=== PATIENT | female | born 1985 | race Two or more races ===

== ENCOUNTER 2024-05-19 17:22 | Emergency (ER) | payer MEDICAID, SELFPAY ==
[2024-05-19 17:40] VITALS: BP 124/76; PULSE 70; RESP 19; TEMP 37.2; O2SAT 99; BMI 31.1
--- NOTE | 2024-05-19 18:08 | PD.EDSKIN ---
ED Skin Abcess FB-RME/HPI General Chief complaint: Skin/Abscess/Foreign Body Stated complaint: Abscess right upper leg Time Seen by Provider: 05/19/24 17:32 Arrival date/time: 05/19/24 17:22 39-year-old female presents the emergency department complaint of abscess right upper leg ongoing for the last few weeks Limitations: no limitations Related Data Home Medications ?Medication ?Instructions ?Recorded ?Confirmed NO HIST MEDS ##0 08/12/07 Previous Rx's ?Medication ?Instructions ?Recorded clindamycin HCl 300 mg capsule 300 mg PO TID 7 days #21 caps 05/19/24 ibuprofen 600 mg tablet 600 mg PO Q6H #30 tabs 05/19/24 Allergies Allergy/AdvReac Type Severity Reaction Status Date / Time NKA* Allergy Uncoded 12/15/13 10:49 Review of Systems Review of Systems Systems Reviewed: All systems reviewed, normal except as documented Constitutional Constitutional: Reports system reviewed and no additional complaints, except as documented, Denies fever(s) and Denies headache(s) Eyes Eyes: Reports system reviewed and no additional complaints, except as documented and Denies blurry vision ENT Ears, Nose, Mouth, and Throat: Reports system reviewed and no additional complaints, except as documented, Denies headache(s), Denies nasal congestion and Denies nasal discharge Cardiovascular Cardiovascular: Reports system reviewed and no additional complaints, except as documented, Denies chest pain and Denies dyspnea Respiratory Respiratory: Reports system reviewed and no additional complaints, except as documented, Denies chest congestion, Denies cough and Denies dyspnea Gastrointestinal Gastrointestinal: Reports system reviewed and no additional complaints, except as documented and Denies abdominal pain Integumentary/Breasts Skin/Breast: Reports system reviewed and no additional complaints, except as documented, Denies rash and Reports other (Abscess right upper leg) Neurologic Neurologic: Reports system reviewed and no additional complaints, except as documented, Reports as per HPI and Denies headache(s) Past Medical History Social History SMOKING STATUS: Never smoker ED Exam General Limitations: Present no limitations General appearance: Present alert and in no apparent distress Head Head exam: Present atraumatic Eye Eye exam: Present normal appearance, PERRL and EOMI ENT ENT exam: Present normal exam, normal oropharynx and mucous membranes moist Neck Neck exam: Present normal inspection, full ROM and trachea midline Chest Chest inspection: Present normal inspection and symmetric chest wall rise Respiratory Respiratory exam: Present normal lung sounds bilaterally Cardiovascular Cardiovascular exam: Present regular rate, normal rhythm and normal heart sounds Abdominal Exam Abdominal exam: Present soft and normal bowel sounds Extremities Exam Extremities exam: Present normal inspection and full ROM Back Exam Back exam: Present normal inspection and full ROM Neurological Exam Neurological exam: Present alert, oriented X3, CN II-XII intact, normal gait and reflexes normal Psychiatric Psychiatric exam: Present normal affect and normal mood Skin Skin exam: Present warm, dry and other (Abscess right upper leg) Course Quality Measures none Orders Category Date Time Status Set Up Suture Tray STAT Care 05/19/24 18:08 Completed Wound Care NOW Care 05/19/24 18:08 Completed Lidocaine 1% 20 ml [Xylocaine 1% 20 ML] Med 05/19/24 18:08 Discontinued 2.1 ml INFL X1 ONE Lidocaine 1% 20 ml [Xylocaine 1% 20 ML] Med 05/19/24 18:08 Discontinued 20 ml INFL X1 ONE Tet,Diphth,Pertuss(Acell)-Tdap [Boostrix Vacc] Med 05/19/24 18:08 Discontinued 0.5 ml IMI .ONCE ONE cefTRIAXone [Rocephin] Med 05/19/24 18:08 Discontinued 1,000 mg IM X1 ONE Vital Signs Vital signs: Vital Signs Temperature 99.0 F 05/19/24 17:40 Pulse Rate 70 05/19/24 17:40 Respiratory Rate 19 05/19/24 17:40 Blood Pressure 124/76 05/19/24 17:40 Pulse Oximetry (%) 99 05/19/24 17:40 Oxygen Delivery Method Room Air 05/19/24 17:40 O2 saturation 99% room air within normal limits Procedures -ED Abscess I/D Side (if applicable): right Sedation/analgesia: none Local Anesthetic: lidocaine 1% Amount of anesthesia used (mL): 5 Technique: incised with #11 blade Amount of fluid expressed (mL): 10 Irrigation: Yes Packing used?: none Complications: pain Skin / Abscess / Foreign Body MDM Narrative MDM Narrative:: 39-year-old female presents the emergency department complaint of abscess right upper leg ongoing for the last few weeks On exam patient has abscess versus infected sebaceous cyst of the right upper leg I&D performed tetanus updated significant purulent drainage expressed Patient discharged home in no distress to follow-up with primary care doctor in the next 24 to 48 hours and for any worsening symptoms to return to the ER immediately Patient data External records reviewed:: [facility] previous records Clinical information provided by:: patient Social determinants that could affect healthcare access:: none Patient has the following chronic illnesses:: None How is presenting disease/condition affected by chronic disease/condition?: no chronic disease Evaluation data The following diagnostics were reviewed and interpreted by me:: other (specify) (N/A) Lab and/or radiology exams considered but not ordered:: Consider not ordered Interpretation Summary: N/A Medications / Prescriptions Medications or Prescriptions considered but not ordered:: Given Medication administrations:: Medication Administration History Discontinued Medications Ceftriaxone Sodium (Ceftriaxone Sod Inj 1,000 Mg Vial) 1,000 mg IM X1 ONE Stop: 05/19/24 18:09 Last Admin: 05/19/24 18:13 Dose: 1,000 mg Documented By: CHARLIE Diphtheria/Tetanus/Acell Pertussis (Diphth,Pertuss(Acell),Tet Vac 0.5 Ml Vial) 0.5 ml IMi .ONCE ONE Stop: 05/19/24 18:09 Last Admin: 05/19/24 18:13 Dose: 0.5 ml Documented By: CHARLIE Lidocaine HCl (Lidocaine Hcl 1% 20 Ml Vial) 2.1 ml INFL X1 ONE Stop: 05/19/24 18:09 Last Admin: 05/19/24 18:14 Dose: 2.1 ml Documented By: CHARLIE Lidocaine HCl (Lidocaine Hcl 1% 20 Ml Vial) 20 ml INFL X1 ONE Stop: 05/19/24 18:09 Last Admin: 05/19/24 18:14 Dose: 20 ml Documented By: CHARLIE Given Consultations Consultation(s) initiated? (list below): No Diagnosis Skin/Abscess Differential Diagnosis: abscess of skin or subcutaneous tissue and cellulitis Most likely diagnosis given after review of the tests above:: Abscess Admission Indicated Admission indicated?: not indicated Admission Request Was there a request for admission?: No Disposition Plan Disposition Plan: Discharge Discharge Attestation Discharge Attestation: The patient and all family members were given an opportunity to ask questions and understood the discharge instructions. Discharge instructions specifically effects, indications for sooner follow up or return to the emergency department, and the expected course of current diagnosis. Patient condition: Stable Discharge Plan Plan Patient Disposition: HOME (Self Care) Disposition Comment: Stable Prescriptions/Referrals Prescriptions/Med Rec: New clindamycin HCl 300 mg capsule 300 mg PO TID 7 Days Qty: 21 0RF ibuprofen 600 mg tablet 600 mg PO Q6H Qty: 30 0RF No Action NO HIST MEDS Qty: 0 Problem List Clinical Impression: Infected sebaceous cyst of skin Patient/Caregiver Discharge Instructions Education Materials: ED Wound Check (Infection) Additional Instructions: Please follow up with your primary care doctor in the next 24-48hrs for any worsening symptoms return here immediately Print Language: Indonesian Stand Alone Forms: [employer] Award Info., Work/School Release, Patient Portal Info Letter PA/FACULTY MEMBER Supervising Physician PA/FACULTY MEMBER Supervising Physician: dr kelly
[2024-05-19] MEDS: cefTRIAXone SOD INJ 1,000 MG VIAL 1000 MG IM (18:13)
[2024-05-19] MEDS: DIPHTH,PERTUSS(ACELL),TET VAC 0.5 ML VIAL IMi (18:13)
[2024-05-19] MEDS: LIDOCAINE HCL 1% 20 ML VIAL INFL (18:14)
[2024-05-19] MEDS: LIDOCAINE HCL 1% 20 ML VIAL 2.1 ML INFL (18:14)
== END 2024-05-19 18:21 | disposition home or self-care (01) ==
LOC: SERX 18:25
PROVIDERS: Emergency Provider Emergency Medicine; PCP Family Medicine
DX: L72.3 Sebaceous cyst (principal); Z23 Encounter for immunization
CPT/HCPCS: 10060; 90471; 90715; 96372; 99283; J0696; J3490